=== PATIENT | female | born 1975 ===

== ENCOUNTER 2017-01-07 16:29 | Emergency (ER) | payer OTHER, SELFPAY ==
[2017-01-07 16:42] VITALS: BP 120/56; PULSE 81; RESP 22; O2SAT 99
--- NOTE | 2017-01-07 16:51 | C.PDOC ---
History Of Present Illness 41 y/o female presents to the ED for evaluation of right sided chest pain for the last 2 weeks. Notes that pain is worse with movement. Denies taking any OTC pain medications. Otherwise, denies any shortness of breath, cough, headache, fever, chills, nausea, vomiting, diarrhea, diaphoresis, jaw pain, back pain, or lower extremity pain/swelling. Time Seen by Provider: 01/07/17 16:35 Chief Complaint (Nursing): Chest Pain History Per: Patient History/Exam Limitations: no limitations Onset/Duration Of Symptoms: Days (2 weeks) Current Symptoms Are (Timing): Still Present Quality: "Pain" Associated Symptoms: denies: Nausea, Dyspnea, Diaphoresis, Syncope Modifying Factors: None Exacerbating Factors: Movement Alleviating Factors: None Recent travel outside of the [place]: No Additional History Per: Patient Past Medical History Reviewed: Historical Data, Nursing Documentation, Vital Signs Vital Signs: Last Vital Signs Temp Pulse 81 01/07/17 16:39 Resp 22 01/07/17 16:39 BP 120/56 L 01/07/17 16:39 Pulse Ox 99 01/07/17 17:10 - Medical History PMH: Asthma, Gastritis Surgical History: Cholecystectomy (06/02/2015), - [facility] Procedures COLONOSCOPY (11/18/12) ESOPHAGOGASTRODUODENOSCOPY [EGD] W/CLOSED BIOPSY (11/18/12) RESECTION OF GALLBLADDER, PERCUTANEOUS ENDOSCOPIC APPROACH (06/01/15) Family History: States: Unknown Family Hx - Social History Hx Tobacco Use: No Hx Alcohol Use: No Hx Substance Use: No - Immunization History Hx Tetanus Toxoid Vaccination: Yes Hx Influenza Vaccination: Yes Hx Pneumococcal Vaccination: No Review Of Systems Except As Marked, All Systems Reviewed And Found Negative. Constitutional: Negative for: Fever, Chills, Sweats Cardiovascular: Positive for: Chest Pain (right side). Negative for: Palpitations, Edema, Light Headedness Respiratory: Negative for: Cough, Shortness of Breath, SOB with Excertion, Sputum Gastrointestinal: Negative for: Nausea, Vomiting, Abdominal Pain Skin: Negative for: Rash, Bruising Neurological: Negative for: Weakness, Numbness, Headache, Dizziness Physical Exam - Physical Exam Appears: Non-toxic, No Acute Distress Skin: Normal Color, Warm, Dry Head: Atraumatic, Normacephalic Eye(s): bilateral: Normal Inspection Oral Mucosa: Moist Neck: Normal ROM, Supple Chest: Symmetrical, No Deformity, Tenderness (reproducible right side chest wall tenderness) Cardiovascular: Rhythm Regular, No Murmur Respiratory: Normal Breath Sounds, No Accessory Muscle Use, No Rales, No Rhonchi , No Wheezing Gastrointestinal/Abdominal: Soft, No Tenderness Extremity: Bilateral: Atraumatic, Normal ROM Neurological/Psych: Oriented x3, Normal Speech, Normal Cognition ED Course And Treatment ECG: Interpreted By Me, Viewed By Me ECG Rhythm: Sinus Rhythm ECG Interpretation: Normal Rate From EC (bpm) O2 Sat by Pulse Oximetry: 99 (RA) Pulse Ox Interpretation: Normal - Radiology CXR: Interpreted by Me, Viewed By Me CXR Interpretation: Yes: No Acute Disease Progress Note: Plan: CXR, EKG, POC urine. Patient was given Motrin. On re-eval , pt reports feeling better, with improvement of chest pain. Reassessment Condition: Improved Disposition Counseled Patient/Family Regarding: Studies Performed, Diagnosis, Need For Followup, Rx Given - Disposition Referrals: [facility] [Outside] [facility] [Outside] Disposition: HOME/ ROUTINE Disposition Time: 17:10 Condition: STABLE Additional Instructions: Follow up with clinic for further evaluation Return to ED if any increase symptoms Prescriptions: Naproxen [Naprosyn] 1 tab PO BID PRN #25 tab PRN Reason: Pain Instructions: Chest Wall Pain (ED) Forms: [facility] (Macanese) Print Language: KOREAN - POA Present On Arrival: None - Clinical Impression Clinical Impression: Chest wall pain - PA / BAND SHOVER / Resident Statement MD/DO has reviewed & agrees with the documentation as recorded. - Scribe Statement The provider has reviewed the documentation as recorded by the Scribe Miki Muir All medical record entries made by the Dignaibdanielle were at my direction and personally dictated by me. I have reviewed the chart and agree that the record accurately reflects my personal performance of the history, physical exam, medical decision making, and the department course for this patient. I have also personally directed, reviewed, and agree with the discharge instructions and disposition.
--- NOTE | 2017-01-07 16:59 | RAD ---
HISTORY: COMPARISON: 01/09/2016 TECHNIQUE: Chest PA and lateral FINDINGS: LINES AND TUBES: None. LUNG AND PLEURA: The lungs are clear. There are no pleural effusions or pneumothorax. HEART AND MEDIASTINUM: The heart is not enlarged. The hilar and mediastinal contours are within normal limits. SKELETAL STRUCTURES: The bony structures are within normal limits for the patient's age. VISUALIZED UPPER ABDOMEN: Normal. OTHER FINDINGS: None. IMPRESSION: No active pulmonary disease.
--- NOTE | 2017-01-09 19:10 | CARD ---
APPROVED REPORT EKG Measurement Heart [id number] <Conclusion> Normal sinus rhythm Normal ECG
== END 2017-01-07 17:27 | disposition home or self-care (01) ==
LOC: C.ER 16:29
DX: R07.89 Other chest pain (principal)

== ENCOUNTER 2017-02-03 11:14 | Emergency (ER) | payer OTHER ==
[2017-02-03 11:27] VITALS: BP 112/74; PULSE 90; RESP 20; TEMP 98; O2SAT 100
--- NOTE | 2017-02-03 11:58 | C.PDOC ---
History Of Present Illness 41 year old female presents to the ED with complaints of sore throat beginning today and urinary frequency and dysuria beginning yesterday. Patient denies cough, fever, vaginal bleeding or discharge. Time Seen by Provider: 02/03/17 11:29 Chief Complaint (Nursing): ENT Problem History Per: Patient History/Exam Limitations: no limitations Onset/Duration Of Symptoms: Hrs (sore throat), Days (1 day of dysuria) Current Symptoms Are (Timing): Still Present Recent travel outside of the [place] States: No Past Medical History Reviewed: Historical Data, Nursing Documentation, Vital Signs Vital Signs: Last Vital Signs Temp 98 F 02/03/17 11:22 Pulse 90 02/03/17 11:22 Resp 20 02/03/17 11:22 BP 112/74 02/03/17 11:22 Pulse Ox 100 02/03/17 12:29 - Medical History PMH: Asthma, Gastritis Surgical History: Cholecystectomy (06/02/2015), - [facility] Procedures COLONOSCOPY (11/18/12) ESOPHAGOGASTRODUODENOSCOPY [EGD] W/CLOSED BIOPSY (11/18/12) RESECTION OF GALLBLADDER, PERCUTANEOUS ENDOSCOPIC APPROACH (06/01/15) Family History: States: Unknown Family Hx - Social History Hx Tobacco Use: No Hx Alcohol Use: No Hx Substance Use: No - Immunization History Hx Tetanus Toxoid Vaccination: Yes Hx Influenza Vaccination: Yes Hx Pneumococcal Vaccination: No Review Of Systems Constitutional: Negative for: Fever, Chills ENT: Positive for: Other (sore throat ) Cardiovascular: Negative for: Chest Pain, Palpitations Respiratory: Negative for: Cough, Shortness of Breath Gastrointestinal: Negative for: Nausea, Vomiting, Abdominal Pain, Diarrhea Genitourinary: Positive for: Dysuria, Frequency. Negative for: Hematuria, Vaginal Discharge, Vaginal Bleeding Physical Exam - Physical Exam Appears: Non-toxic, No Acute Distress Skin: Warm, Dry Head: Atraumatic Eye(s): bilateral: Normal Inspection, EOMI Nose: Normal, No Discharge Oral Mucosa: Moist Throat: Normal, No Erythema, No Exudate Neck: Supple Chest: Symmetrical, No Deformity Cardiovascular: Rhythm Regular, No Murmur Respiratory: Normal Breath Sounds, No Rales, No Rhonchi, No Wheezing Gastrointestinal/Abdominal: Soft, No Tenderness, No Distention, No Guarding, No Rebound Neurological/Psych: Oriented x3, Normal Speech, Normal Cognition ED Course And Treatment O2 Sat by Pulse Oximetry: 100 (room air ) Progress Note: UA was ordered and patient was given Cipro and Motrin. Medical Decision Making Medical Decision Making: Impression: dysuria, sore throat Prior records reviewed: Patient recently seen in ED 01/07/17 for right sided chest pain with normal CXR and EKG. Patient was discharged home with Naproxen. Plan: Motrin, Urinalysis Progress: UA shows UTI Patient remained afebrile and in no acute distress. Patient feels comfortable going home and will be discharged. Patient given follow up instructions. Instructed to return to ER if symptoms worsen or new symptoms arise. Disposition Counseled Patient/Family Regarding: Diagnosis, Need For Followup, Rx Given - Disposition Referrals: Kiya Patel MD [Staff Provider] - Disposition: HOME/ ROUTINE Disposition Time: 12:25 Condition: GOOD Additional Instructions: Por favor, siga con manriquez mdico o clnica para ms evaluacin La orina muestra infeccin [place] medicamentos para el dolor cuando sea necesario [place] el antibitico dos veces al da Prescriptions: Ciprofloxacin [Cipro] 1 tab PO BID #10 tab Instructions: Urinary Tract Infection in Women (DC) Forms: [employer] (Japanese) Print Language: KINYARWANDA - POA Present On Arrival: None - Clinical Impression Clinical Impression: UTI (urinary tract infection), Sore throat - Scribe Statement The provider has reviewed the documentation as recorded by the Scribe Spring Lyons All medical record entries made by the Scribe were at my direction and personally dictated by me. I have reviewed the chart and agree that the record accurately reflects my personal performance of the history, physical exam, medical decision making, and the department course for this patient. I have also personally directed, reviewed, and agree with the discharge instructions and disposition.
[2017-02-03 12:07] LABS: RBC URINE 13 /hpf (0-3); URINE BACTERIA RARE (<OCC); URINE BILIRUBIN NEGATIVE (NEGATIVE); URINE BLOOD 1+ (NEGATIVE); URINE COLOR Yellow (YELLOW); URINE GLUCOSE (UA) NORMAL (Normal); URINE KETONE NEGATIVE (NEGATIVE); URINE LEUKOCYTE ESTERASE 3+ Leu/uL (Negative); URINE PROTEIN 1+ mg/dL (NEGATIVE); WBC URINE 608 /hpf (0-5)
== END 2017-02-03 12:29 | disposition home or self-care (01) ==
LOC: C.ER 11:14
DX: N39.0 Urinary tract infection, site not specified (principal); B96.4 Proteus (mirabilis) (morganii) as the cause of diseases classified elsewhere; J02.9 Acute pharyngitis, unspecified

== ENCOUNTER 2017-08-04 10:52 | Emergency (ER) | payer OTHER ==
[2017-08-04 11:05] VITALS: BP 134/84; PULSE 79; RESP 20; TEMP 97.8; O2SAT 98
--- NOTE | 2017-08-04 11:50 | C.PDOC ---
History Of Present Illness 42 year old obese female presents to ED with complaints of right sided mid to lower back pain for 2 weeks. She reports having this pain for couple of months but aggravated after picking up her niece 2 weeks ago. She states pain is aching and worsened with movement. She has been taking Advil with transient relief. Denies any falls, numbness, weakness, urinary symptoms, incontinence. Time Seen by Provider: 08/04/17 11:26 Chief Complaint (Nursing): Back Pain History Per: Patient History/Exam Limitations: no limitations Current Symptoms Are (Timing): Still Present Quality Of Discomfort: "Pain" Past Medical History Reviewed: Historical Data, Nursing Documentation, Vital Signs Vital Signs: Last Vital Signs Temp 97.8 F 08/04/17 11:05 Pulse 79 08/04/17 11:05 Resp 20 08/04/17 11:05 BP 134/84 08/04/17 11:05 Pulse Ox 98 08/04/17 12:08 - Medical History PMH: Asthma, Gastritis Surgical History: Cholecystectomy (06/02/2015), - [facility] Procedures COLONOSCOPY (11/18/12) ESOPHAGOGASTRODUODENOSCOPY [EGD] W/CLOSED BIOPSY (11/18/12) RESECTION OF GALLBLADDER, PERCUTANEOUS ENDOSCOPIC APPROACH (06/01/15) Family History: States: No Known Family Hx - Social History Hx Tobacco Use: No Hx Alcohol Use: No Hx Substance Use: No - Immunization History Hx Tetanus Toxoid Vaccination: Yes Hx Influenza Vaccination: Yes Hx Pneumococcal Vaccination: No Review Of Systems Constitutional: Negative for: Fever, Chills Gastrointestinal: Negative for: Nausea, Vomiting Genitourinary: Negative for: Dysuria, Hematuria Musculoskeletal: Positive for: Back Pain. Negative for: Neck Pain Skin: Negative for: Rash Neurological: Negative for: Weakness, Numbness Physical Exam - Physical Exam Appears: Non-toxic, No Acute Distress Skin: Warm, Dry, No Rash Head: Atraumatic, Normacephalic Eye(s): bilateral: Normal Inspection, EOMI Oral Mucosa: Moist Neck: Normal ROM, Supple Chest: Symmetrical Cardiovascular: Rhythm Regular, No Murmur Respiratory: Normal Breath Sounds, No Rales, No Rhonchi, No Wheezing Gastrointestinal/Abdominal: Soft, No Tenderness, No Guarding, No Rebound Back: No Muscle Spasm, No Paraspinal Tenderness, Other (tenderness to latissimus dorsi muscle and paralumbar region on right side) Extremity: Normal ROM, No Tenderness, No Deformity, No Swelling Neurological/Psych: Oriented x3, Normal Speech, Normal Motor, Normal Sensation Gait: Steady ED Course And Treatment O2 Sat by Pulse Oximetry: 98 (RA) Pulse Ox Interpretation: Normal Medical Decision Making Medical Decision Making: patient with chronic back pain. Exam shows muscular tenderness and no rash to suggest zoster, or any vertebral tenderness. no trauma and no clinical indication for xray. patient treated with Toradol IM and flexeril. On re-eval patient reports feeling moderately better. She is ambulatory without signs of discomfort. recommend weight loss and back exercises. Rx given. Advise follow up with clinic Disposition Counseled Patient/Family Regarding: Diagnosis, Need For Followup, Rx Given - Disposition Referrals: Jabier Santo MD [Staff Provider] - Disposition: HOME/ ROUTINE Disposition Time: 12:15 Condition: STABLE Additional Instructions: You can apply heat to area Take Tylenol 500mg for any pain Take Ibuprofen as needed for pain every 6-8 hours, with food to not upset stomach Take Flexeril every 8 hours as needed for muscular pain and spasm, caution may cause drowsiness Puedes aplicar calor al collins Payne Tylenol 500 mg para cualquier dolor Payne ibuprofeno segn sea necesario para el dolor cada 6-8 horas, con alimentos para no disgustar el estmago Payne Flexeril cada 8 horas segn sea necesario para el dolor muscular y el espasmo, la precaucin puede causar somnolencia Prescriptions: Cyclobenzaprine [Cyclobenzaprine HCl] 10 mg PO TID #30 tab Ibuprofen [Motrin] 600 mg PO Q8 #30 tab Instructions: Back Exercises Forms: [employer] (Turkish) Print Language: SYRIAC - POA Present On Arrival: None - Clinical Impression Clinical Impression: Low back pain - PA / MATERIALS INTERN / Resident Statement MD/DO has reviewed & agrees with the documentation as recorded. - Scribe Statement The provider has reviewed the documentation as recorded by the Dignaibdanielle Quintanilla All medical record entries made by the Scribe were at my direction and personally dictated by me. I have reviewed the chart and agree that the record accurately reflects my personal performance of the history, physical exam, medical decision making, and the department course for this patient. I have also personally directed, reviewed, and agree with the discharge instructions and disposition.
== END 2017-08-04 12:17 | disposition home or self-care (01) ==
LOC: C.ER 10:52
DX: M54.5 Low back pain (principal)
CPT/HCPCS: 96372; 99283; J1885

== ENCOUNTER 2017-08-24 10:36 | Emergency (ER) | payer OTHER ==
[2017-08-24 10:54] VITALS: O2SAT 100
--- NOTE | 2017-08-24 11:35 | C.PDOC ---
History Of Present Illness 42 year old female presents to the ER with a complaint of back pain for the past 3-4 months. Patient was seen in the ER initially on 08/04/17 and started on motrin and flexeril. Patient was seen by a chiropractor who recommended chiropractic treatment, however, patient is requesting another opinion. Denies weakness or numbness. Time Seen by Provider: 08/24/17 11:13 Chief Complaint (Nursing): Back Pain History Per: Patient History/Exam Limitations: no limitations Onset/Duration Of Symptoms: Days Current Symptoms Are (Timing): Still Present Quality Of Discomfort: Unable To Describe Associated Symptoms: None Exacerbating Factor(s): Nothing Recent travel outside of the [place]: No Past Medical History Reviewed: Historical Data, Nursing Documentation, Vital Signs Vital Signs: Last Vital Signs Temp 98.0 F 08/24/17 11:53 Pulse 81 08/24/17 11:53 Resp 20 08/24/17 11:53 BP 128/84 08/24/17 11:53 Pulse Ox 100 08/24/17 11:59 - Medical History PMH: Asthma, Gastritis Surgical History: Cholecystectomy (06/02/2015), - [facility] Procedures COLONOSCOPY (11/18/12) ESOPHAGOGASTRODUODENOSCOPY [EGD] W/CLOSED BIOPSY (11/18/12) RESECTION OF GALLBLADDER, PERCUTANEOUS ENDOSCOPIC APPROACH (06/01/15) Family History: States: Unknown Family Hx - Social History Hx Tobacco Use: No Hx Alcohol Use: No Hx Substance Use: No - Immunization History Hx Tetanus Toxoid Vaccination: Yes Hx Influenza Vaccination: Yes Hx Pneumococcal Vaccination: No Review Of Systems Except As Marked, All Systems Reviewed And Found Negative. Musculoskeletal: Positive for: Back Pain Neurological: Negative for: Weakness, Numbness Physical Exam - Physical Exam Appears: Non-toxic, No Acute Distress Skin: Normal Color, Warm, Dry Head: Atraumatic, Normacephalic Eye(s): bilateral: Normal Inspection Back: Other (Limited ROM, no focal tenderness, no LS tenderness) Extremity: Normal ROM (x4) Neurological/Psych: Oriented x3, Normal Speech, Normal Motor, Normal Sensation Gait: Steady ED Course And Treatment O2 Sat by Pulse Oximetry: 100 (Room air) Pulse Ox Interpretation: Normal Progress - Data Reviewed Data Reviewed: Old records Medical Decision Making Medical Decision Making: Plan: * Lidoderm * Tylenol/codiene Disposition Counseled Patient/Family Regarding: Diagnosis, Need For Followup, Rx Given - Disposition Referrals: [facility] [Outside] [facility] [Outside] Disposition: HOME/ ROUTINE Disposition Time: 11:32 Condition: IMPROVED Prescriptions: Acetaminophen with Codeine [Tylenol with Codeine No. 3 300 mg-30 mg] 1 tab PO Q6 PRN #12 tab PRN Reason: Pain, Moderate (4-7) Lidocaine 5% [Lidoderm] 1 ea TD PRN PRN #10 patch PRN Reason: Pain, Moderate (4-7) Instructions: Upper Back Pain, Back Exercises Forms: [employer] (Sami), Work Excuse Print Language: LUXEMBOURGISH - Clinical Impression Clinical Impression: Chronic back pain - Scribe Statement The provider has reviewed the documentation as recorded by the Scribdanielle Mcallister All medical record entries made by the Scribe were at my direction and personally dictated by me. I have reviewed the chart and agree that the record accurately reflects my personal performance of the history, physical exam, medical decision making, and the department course for this patient. I have also personally directed, reviewed, and agree with the discharge instructions and disposition.
[2017-08-24] MEDS ORDERED: Lidocaine 5% Patch TD STA (11:37)
[2017-08-24] MEDS ORDERED: Acetaminophen-Codeine 300/30 mg Tab PO STA (11:37)
[2017-08-24] MEDS ORDERED: Lidocaine 5% Patch TD ONE (11:47)
[2017-08-24 11:53] VITALS: BP 128/84; PULSE 81; RESP 20; TEMP 98
== END 2017-08-24 11:55 | disposition home or self-care (01) ==
LOC: C.ER 10:36
DX: G89.29 Other chronic pain (principal); M54.9 Dorsalgia, unspecified

== ENCOUNTER 2017-11-07 20:17 | Emergency (ER) | payer OTHER ==
[2017-11-07 20:17] VITALS: BMI 49.0
[2017-11-07 20:30] VITALS: BP 129/78; PULSE 80; TEMP 98.3; O2SAT 98
--- NOTE | 2017-11-07 21:15 | C.PDOC ---
History Of Present Illness 42 year old female presents to the ER with a complaint of Right upper/middle back pain for the past 3-4 months. Patient was seen in the ER initially on 08/04 and started on motrin and flexeril. Patient was seen by a chiropractor who recommended chiropractic treatment, however, patient is requesting another opinion. Denies weakness or numbness. Time Seen by Provider: 11/07/17 20:31 Chief Complaint (Nursing): Back Pain Past Medical History Vital Signs: Last Vital Signs Temp 98.3 F 11/07/17 20:19 Pulse 80 11/07/17 20:19 Resp 14 11/07/17 20:19 BP 129/78 11/07/17 20:19 Pulse Ox 98 11/07/17 20:19 - Medical History PMH: Asthma, Gastritis Surgical History: Cholecystectomy (06/02/2015), - [facility] Procedures COLONOSCOPY (11/18/12) ESOPHAGOGASTRODUODENOSCOPY [EGD] W/CLOSED BIOPSY (11/18/12) RESECTION OF GALLBLADDER, PERCUTANEOUS ENDOSCOPIC APPROACH (06/01/15) Family History: States: Unknown Family Hx - Social History Hx Tobacco Use: No Hx Alcohol Use: No Hx Substance Use: No - Immunization History Hx Tetanus Toxoid Vaccination: Yes Hx Influenza Vaccination: Yes Hx Pneumococcal Vaccination: No Physical Exam - Physical Exam Appears: Well, Non-toxic, No Acute Distress Skin: Normal Color, Warm, Dry, No Rash Head: Normacephalic Eye(s): bilateral: PERRL Nose: No Flaring, No Discharge Oral Mucosa: Moist Neck: Trachea Midline, No Midline Cervical Tenderness, No Paracervical Tenderness, No Step Off Deformity, Supple Chest: Symmetrical, No Deformity, No Tenderness Cardiovascular: Rhythm Regular Respiratory: No Decreased Breath Sounds, No Accessory Muscle Use, No Stridor, No Wheezing Gastrointestinal/Abdominal: Soft, No Tenderness, No Distention, No Guarding Back: No Vertebral Tenderness, Paraspinal Tenderness (diffuse Right periscapular tenderness extend down to Right parathoracic and lumabr. No midline tenderness, no skin changes.) Extremity: Normal ROM, No Deformity, No Swelling Neurological/Psych: Oriented x3, Normal Speech, Normal Motor, Normal Sensation, Normal Reflexes ED Course And Treatment O2 Sat by Pulse Oximetry: 98 Pulse Ox Interpretation: Normal Disposition Counseled Patient/Family Regarding: Diagnosis, Need For Followup, Rx Given - Disposition Referrals: [facility] [Outside] Disposition: HOME/ ROUTINE Disposition Time: 21:16 Condition: STABLE Additional Instructions: Light duty to back area Take pain medication as prescribed Follow up with PMD in 2-3 days for re-evaluation, Pain management for further pain control. return to ED if any worsening or new changes. Prescriptions: Gabapentin [Neurontin] 300 mg PO BID #14 cap Methocarbamol [Robaxin] 500 mg PO TID #14 tab Instructions: Upper Back Pain, Muscle Spasms (DC) Print Language: SAMI - Clinical Impression Clinical Impression: Thoracic back pain
[2017-11-07 21:24] VITALS: RESP 20
== END 2017-11-07 21:23 | disposition home or self-care (01) ==
LOC: C.ER 20:17
DX: M54.6 Pain in thoracic spine (principal)

== ENCOUNTER 2018-02-12 01:29 | Emergency (ER) | payer OTHER ==
[2018-02-12 01:29] VITALS: BMI 49.0
[2018-02-12 01:46] VITALS: RESP 18; TEMP 98.2
--- NOTE | 2018-02-12 02:12 | C.PDOC ---
History Of Present Illness 42 year old female presents to the ER with a complaint of 2-3 days of right chest wall pain that worsens when laying back and with deep inspiration. Patient also reports having a sore throat yesterday which resolved today. Denies dysuria, GI bleed, fever, SOB, trauma, or cough. Time Seen by Provider: 02/12/18 01:48 Chief Complaint (Nursing): Breast Problem History Per: Patient History/Exam Limitations: no limitations Onset/Duration Of Symptoms: Days Current Symptoms Are (Timing): Still Present Recent travel outside of the [place] States: No Past Medical History Reviewed: Historical Data, Nursing Documentation, Vital Signs Vital Signs: Last Vital Signs Temp 98.2 F 02/12/18 03:02 Pulse 84 02/12/18 03:02 Resp 18 02/12/18 03:02 BP 134/86 02/12/18 03:02 Pulse Ox 100 02/12/18 03:15 - Medical History PMH: Asthma, Gastritis Surgical History: Cholecystectomy (06/02/2015), - [facility] Procedures COLONOSCOPY (11/18/12) ESOPHAGOGASTRODUODENOSCOPY [EGD] W/CLOSED BIOPSY (11/18/12) RESECTION OF GALLBLADDER, PERCUTANEOUS ENDOSCOPIC APPROACH (06/01/15) Family History: States: Unknown Family Hx - Social History Hx Tobacco Use: No Hx Alcohol Use: No Hx Substance Use: No - Immunization History Hx Tetanus Toxoid Vaccination: Yes Hx Influenza Vaccination: Yes Hx Pneumococcal Vaccination: No Review Of Systems Constitutional: Negative for: Fever, Chills ENT: Positive for: Throat Pain Cardiovascular: Negative for: Palpitations Respiratory: Negative for: Shortness of Breath Gastrointestinal: Negative for: Nausea, Vomiting Genitourinary: Negative for: Dysuria Musculoskeletal: Positive for: Other (Right chest wall pain) Physical Exam - Physical Exam Appears: Non-toxic Skin: Normal Color, Warm, Dry Head: Atraumatic, Normacephalic Eye(s): bilateral: Normal Inspection Oral Mucosa: Moist Chest: Symmetrical, No Tenderness Cardiovascular: Rhythm Regular Respiratory: Normal Breath Sounds, No Rales, No Rhonchi, No Wheezing Gastrointestinal/Abdominal: Soft, No Tenderness Back: No CVA Tenderness Extremity: Normal ROM (x4) Neurological/Psych: Oriented x3, Normal Speech ED Course And Treatment ECG: Interpreted By Me ECG Rhythm: Sinus Rhythm ECG Interpretation: Normal Rate From EC (bpm) O2 Sat by Pulse Oximetry: 100 (on RA) Pulse Ox Interpretation: Normal - Radiology CXR: Interpreted by Me CXR Interpretation: Yes: No Acute Disease. No: Infiltrates, Pnemothorax Medical Decision Making Medical Decision Making: On re-exam, the patient reports improvement of symptoms. Lungs are CTA, heart is RRR, abdomen is soft, non-tender and tolerating PO well. Follow up with the medical doctor within 1-2 days. Return if worsened. Disposition - Disposition Referrals: [facility] [Outside] Disposition: HOME/ ROUTINE Disposition Time: 03:14 Condition: STABLE Additional Instructions: Follow up with the medical doctor within 1-2 days. Return if worsened. Prescriptions: Ibuprofen [Motrin] 600 mg PO TID #21 tab Forms: [employer] (Khmer), Work Excuse Print Language: HEBREW - Clinical Impression Clinical Impression: Pleuritic chest pain - PA / PAYROLL CONSULTANT / Resident Statement MD/DO has reviewed & agrees with the documentation as recorded. - Scribe Statement The provider has reviewed the documentation as recorded by the Scribdanielle Mcallister All medical record entries made by the Dignaibdanielle were at my direction and personally dictated by me. I have reviewed the chart and agree that the record accurately reflects my personal performance of the history, physical exam, medical decision making, and the department course for this patient. I have also personally directed, reviewed, and agree with the discharge instructions and disposition.
[2018-02-12 03:02] VITALS: BP 134/86; PULSE 84
[2018-02-12 03:11] VITALS: O2SAT 100
--- NOTE | 2018-02-12 08:48 | RAD ---
HISTORY: COMPARISON: 01/07/2017. TECHNIQUE: Chest PA and lateral FINDINGS: LINES AND TUBES: None. LUNG AND PLEURA: The lungs are well inflated and clear. No pleural effusion or pneumothorax. HEART AND MEDIASTINUM: The heart is not enlarged. The hilar and mediastinal contours are within normal limits. SKELETAL STRUCTURES: The bony structures are within normal limits for the patient's age. VISUALIZED UPPER ABDOMEN: Normal. OTHER FINDINGS: None. IMPRESSION: No active pulmonary disease.
== END 2018-02-12 03:24 | disposition home or self-care (01) ==
LOC: C.ER 01:29
DX: R07.81 Pleurodynia (principal)

== ENCOUNTER 2018-06-28 11:07 | Outpatient (CLI) | payer OTHER | END 2018-06-28 11:08 | disposition home or self-care (01) | LOC: C.MAMMO 11:07 | DX: N64.4 Mastodynia (principal); N64.52 Nipple discharge ==